=== PATIENT | female | born 1935 | race Caucasian/White ===

== ENCOUNTER 2016-08-09 16:33 | Inpatient (IN) | payer MEDICARE, OTHER ==
[~2016-08-09] VITALS: Ht 160 cm; Wt 59.4 kg
[2016-08-09] MEDS ORDERED: OPTIRAY 350 100 ML VIAL HMH IV ONE (16:34)
[2016-08-09] MEDS ORDERED: SODIUM CHLORIDE 0.9% 1,000 ML ONE (23:32)
[2016-08-10] VITALS (7 sets, daily range): BP systolic 100–120; RESP 16–20; TEMP 96.2–97.8; Ht 160 cm; Wt 59.4 kg
[2016-08-10] MEDS: SALINE FLUSH 10 ML FLUSH SCH ×3 (01:45→22:14)
[2016-08-10] MEDS ORDERED: SALINE FLUSH 10 ML FLUSH PRN (01:45)
[2016-08-10] MEDS ORDERED: ONDANSETRON 4 MG VIAL IV PRN (01:45)
[2016-08-10] MEDS ORDERED: OFLOXACIN 0.3% EYE LT SCH (01:45)
[2016-08-10] MEDS: SODIUM CHLORIDE 0.9% 1,000 ML IV SCH ×2 (03:15→22:17)
[2016-08-10] MEDS: VANCOMYCIN SUSP 250 MG/5 ML UDC PO SCH ×2 (03:32→08:49)
[2016-08-10] MEDS: DOCUSATE SOD 100 MG CAP PO SCH ×4 (03:32→22:22)
[2016-08-10] MEDS: SODIUM CHLORIDE 0.9% FLUSH BAG 500 ML IV SCH (06:00)
[2016-08-10] MEDS: PANTOPRAZOLE 40 MG VIAL IV SCH (08:49)
[2016-08-10] MEDS ORDERED: LIDOCAINE 2% SYR 5 ML IV ONE (10:02)
[2016-08-10] MEDS ORDERED: PROPOFOL 50ML PER ML IV ONE (10:02)
[2016-08-10] MEDS: LEVOTHYROXINE 0.112 MG TAB PO SCH (10:49)
[2016-08-10] MEDS ORDERED: BISACODYL EC 5 MG TAB PO ONE (17:50)
[2016-08-10] MEDS: TEMAZEPAM 15 MG CAP PO SCH (22:14)
[2016-08-11] VITALS (11 sets, daily range): BP systolic 100–140; RESP 15–24; TEMP 96.3–98.5
[2016-08-11] MEDS: SODIUM CHLORIDE 0.9% FLUSH BAG 500 ML IV SCH (06:00)
[2016-08-11] MEDS: LEVOTHYROXINE 0.112 MG TAB PO SCH (07:00)
[2016-08-11] MEDS: SODIUM CHLORIDE 0.9% 1,000 ML IV SCH (07:14)
[2016-08-11] MEDS: SALINE FLUSH 10 ML FLUSH SCH ×2 (07:15→20:00)
[2016-08-11] MEDS: APIXABAN 5 MG TAB PO SCH ×2 (09:00→21:44)
[2016-08-11] MEDS: DOCUSATE SOD 100 MG CAP PO SCH ×2 (09:00→21:43)
[2016-08-11] MEDS ORDERED: LACT RINGERS 1,000 ML IV SCH (09:55)
[2016-08-11] MEDS ORDERED: LIDOCAINE 1% BUFFERED 1 ML SYR INTRADERM PRN (09:55)
[2016-08-11] MEDS: PANTOPRAZOLE 40 MG VIAL IV SCH (10:40)
[2016-08-11] MEDS: KCL CR 20 MEQ TAB PO SCH ×2 (12:11→13:40)
[2016-08-11] MEDS: TEMAZEPAM 15 MG CAP PO SCH (21:44)
[2016-08-12] MEDS: SODIUM CHLORIDE 0.9% 1,000 ML IV SCH ×2 (03:40→14:13)
[2016-08-12 04:15] VITALS: BP_SYST 110; RESP 20; TEMP 96.2
[2016-08-12] MEDS: SODIUM CHLORIDE 0.9% FLUSH BAG 500 ML IV SCH (06:00)
[2016-08-12] MEDS: LEVOTHYROXINE 0.112 MG TAB PO SCH (06:41)
[2016-08-12] MEDS: SALINE FLUSH 10 ML FLUSH SCH (07:06)
[2016-08-12 07:49] VITALS: BP_SYST 128; RESP 18; TEMP 97.3
[2016-08-12] MEDS: DOCUSATE SOD 100 MG CAP PO SCH (08:45)
[2016-08-12] MEDS: PANTOPRAZOLE 40 MG VIAL IV SCH (08:45)
[2016-08-12] MEDS: APIXABAN 5 MG TAB PO SCH (08:45)
[2016-08-12 11:51] VITALS: BP_SYST 136; RESP 20; TEMP 96.7
[2016-08-12 15:56] VITALS: BP_SYST 120; RESP 20; TEMP 97.1
[2016-08-12 16:16] VITALS: BP_SYST 120; RESP 20; TEMP 97.1
[2016-08-13] MEDS ORDERED: PANTOPRAZOLE 40 MG TAB PO SCH (07:00)
== END 2016-08-12 18:13 | disposition home or self-care (01) | DRG 389 ==
LOC: ENRESERVDT → ENRESERVTM → ER 16:33 → ENPENDDIS 08-10 01:45 → EMR 08-10 01:45 → 3NT 08-10 03:07
PROVIDERS: ADMIT Internal Medicine; ATTEND Internal Medicine
PROC: 0DB68ZX Excision of Stomach, Via Natural or Artificial Opening Endoscopic, Diagnostic (ICD-10-PCS; principal; 2016-08-11 12:00)
DX: K56.41 Fecal impaction (principal); N39.0 Urinary tract infection, site not specified; I48.91 Unspecified atrial fibrillation; E86.1 Hypovolemia; I10 Essential (primary) hypertension; K44.9 Diaphragmatic hernia without obstruction or gangrene; Z85.038 Personal history of other malignant neoplasm of large intestine; R19.7 Diarrhea, unspecified; Z87.891 Personal history of nicotine dependence; Z95.0 Presence of cardiac pacemaker; Z82.49 Family history of ischemic heart disease and other diseases of the circulatory system
CPT/HCPCS: 36415; 74020; 74177; 80053; 81001; 82274; 82553; 83630; 83690; 84484; 85025; 87040; 87045; 87046; 87088; 87177; 87493; 88305; 96360; 99222; 99232; 99239